=== PATIENT | female | born 1945 | race Caucasian/White ===

== ENCOUNTER 2024-12-18 16:34 | Inpatient (IN) | payer MEDICARE ==
[~2024-12-18] VITALS: Ht 157.5 cm; Wt 47.6 kg
[2024-12-18] MEDS ORDERED: Water, Sterile 10 ML VIAL IM PRN (17:45)
[2024-12-18] MEDS ORDERED: Ziprasidone Mesylate 20 MG VIAL IM PRN (17:45)
[2024-12-18] MEDS ORDERED: LORazepam 1 MG TAB PO PRN (17:45)
[2024-12-18] MEDS ORDERED: ATIVAN0.5 MG PO (17:58)
[2024-12-18] MEDS ORDERED: NORVASC2.5 MG PO (17:58)
[2024-12-18] MEDS ORDERED: COLACE100 MG PO (18:01)
[2024-12-18] MEDS ORDERED: CEFTRIAXONE1 G1 IM (18:01)
[2024-12-18] MEDS ORDERED: FLOMAX0.4 MG PO (18:02)
[2024-12-18] MEDS ORDERED: KEPPRA500 MG PO (18:02)
[2024-12-18] MEDS ORDERED: METOPROLOL SUCC50 M1 PO (18:03)
[2024-12-18] MEDS ORDERED: ACETAMINOPHEN 325 MG TAB PO PRN (19:25)
[2024-12-18] MEDS ORDERED: Magnesium Hydroxide 30 ML UDC PO PRN (19:25)
[2024-12-18] MEDS ORDERED: MG-AL HYDROXIDE/SIMETICONE 30 ML UDC PO PRN (19:25)
[2024-12-18] MEDS ORDERED: Menthol/Zinc Oxide 4 GM THIN T PRN (19:30)
[2024-12-18 20:00] VITALS: BP 168/117
[2024-12-18] MEDS ORDERED: LEVETIRACETAM 500 MG TAB PO SCH (21:00)
[2024-12-18] MEDS ORDERED: CEPHALEXIN 500 MG CAP PO SCH (21:00)
[2024-12-18] MEDS ORDERED: Mirtazapine 15 MG TAB PO SCH (21:00)
[2024-12-19 06:49] LABS: BASO % 0.1 % (0.0-1.0); EOS # 0.1 10*3/uL (0.0-0.4); EOS % 0.8 % (1.0-4.0); MEAN CELL VOLUME 89.7 fl (81.0-99.0); MEAN CORPUSCULAR HGB CONC 32.3 g/dl (33.0-37.0); MEAN PLATELET VOLUME 9.7 fl (9.6-12.3); MONO # 0.3 10*3/uL (0.1-1.0); MONO % 4.2 % (3.0-9.0); NEUT # 5.9 10*3/uL (2.3-7.9); NEUT % 79.3 % (47.0-73.0); PLATELET COUNT AUTOMATED 258 10*3/uL (130-400); RED BLOOD COUNT 4.35 10*6/uL (4.10-5.10); RED CELL DISTRI WIDTH 14.1 % (0-14.5); WHITE BLOOD COUNT 7.4 10*3/uL (4.8-10.8)
[2024-12-19 07:25] LABS: ALKALINE PHOSPHATASE 63 U/L (46-116); BUN 9 mg/dl (9-23); CHLORIDE 107 mmol/L (98-107); CHOLESTEROL 206 mg/dL (<200); LDL CHOLESTEROL 143 mg/dL (9-159); POTASSIUM 3.7 mmol/L (3.4-5.1); SGPT/ALT 8 U/L (5-49); TRIGLYCERIDES 96 mg/dl (<150)
[2024-12-19 07:37] LABS: VITAMIN D, 25-HYDROXY 52.1 ng/mL (30-100)
[2024-12-19 08:00] VITALS: BP 125/86
[2024-12-19] MEDS ORDERED: Tamsulosin Hydrochloride 0.4 MG CAP PO SCH (09:00)
[2024-12-19] MEDS ORDERED: amLODIPine besylate 2.5 MG TAB PO SCH (09:00)
[2024-12-19] MEDS ORDERED: METOPROLOL SUCCINATE XR 50 MG TAB PO SCH (09:00)
[2024-12-19 20:00] VITALS: BP 103/73
[2024-12-20 08:00] VITALS: BP 143/105
[2024-12-20 20:00] VITALS: BP 108/82
[2024-12-21 08:32] VITALS: BP 155/92
[2024-12-21] MEDS ORDERED: Rivastigmine Tartrate 4.6 MG/24 HR PATCH T SCH (09:00)
[2024-12-21 20:00] VITALS: BP 153/86
[2024-12-21] MEDS ORDERED: Memantine Hydrochloride 5 MG TAB PO SCH (21:00)
[2024-12-22 08:33] VITALS: BP 158/88
[2024-12-22 20:00] VITALS: BP 103/82
[2024-12-22] MEDS ORDERED: Memantine Hydrochloride 5 MG TAB PO SCH (21:00)
[2024-12-23 07:30] VITALS: BP 129/88
[2024-12-23 20:00] VITALS: BP 106/72
[2024-12-24 08:03] VITALS: BP 104/83
[2024-12-24] MEDS ORDERED: Rivastigmine Tartrate 9.5 MG/24 HR PATCH T SCH (09:00)
[2024-12-24 20:00] VITALS: BP 108/73
[2024-12-24] MEDS ORDERED: Memantine Hydrochloride 10 MG TAB PO SCH (21:00)
[2024-12-25 08:00] VITALS: BP 129/81
[2024-12-25] MEDS ORDERED: Memantine Hydrochloride 5 MG TAB PO SCH (09:00)
[2024-12-25] MEDS ORDERED: LORazepam 1 MG TAB PO PRN (18:10)
[2024-12-25 20:00] VITALS: BP 102/74
[2024-12-26 08:00] VITALS: BP 139/80
[2024-12-26 20:00] VITALS: BP 109/72
[2024-12-27 08:00] VITALS: BP 145/89
[2024-12-27] MEDS ORDERED: Memantine Hydrochloride 10 MG TAB PO SCH (09:00)
[2024-12-27] MEDS ORDERED: RIVASTIGMINE 13.3 MG/24 HR TDM T SCH (09:00)
[2024-12-27] MEDS ORDERED: MIRTAZAPINE15 M2 PO (10:28)
[2024-12-27] MEDS ORDERED: MEMANTINE HCL10 MG PO ×2 (10:28)
[2024-12-27] MEDS ORDERED: RIVASTIGMINE1 EAC2 T (10:28)
[2024-12-27] MEDS ORDERED: METOPROLOL SUCC25 M2 PO (12:27)
[2024-12-27] MEDS ORDERED: LEVETIRACETAM 500 MG TAB PO SCH (21:00)
[2024-12-28] MEDS ORDERED: amLODIPine besylate 2.5 MG TAB PO SCH (09:00)
== END 2024-12-27 16:40 | DRG 885 ==
LOC: 3N 16:34
PROVIDERS: ADMIT Psychiatry & Neurology Psychiatry; ATTEND Psychiatry & Neurology Psychiatry
PROC: GZHZZZZ Group Psychotherapy (ICD-10-PCS; principal; 2024-12-19)
PROC: GZ51ZZZ Individual Psychotherapy, Behavioral (ICD-10-PCS; 2024-12-19)
DX: F33.2 Major depressive disorder, recurrent severe without psychotic features (principal); N39.0 Urinary tract infection, site not specified; E44.0 Moderate protein-calorie malnutrition; F43.21 Adjustment disorder with depressed mood; N31.9 Neuromuscular dysfunction of bladder, unspecified; J43.9 Emphysema, unspecified; I10 Essential (primary) hypertension; G30.9 Alzheimer's disease, unspecified; F02.80 Dementia in other diseases classified elsewhere, unspecified severity, without behavioral disturbance, psychotic disturbance, mood disturbance, and anxiety; F41.1 Generalized anxiety disorder; Z66 Do not resuscitate; Z86.73 Personal history of transient ischemic attack (TIA), and cerebral infarction without residual deficits; Z90.710 Acquired absence of both cervix and uterus